=== PATIENT | male | born 1990 | race Caucasian/White ===

== ENCOUNTER 2019-12-27 17:45 | Inpatient (IN) | payer OTHER ==
[2019-12-27 18:20] VITALS: BMI 27.6
[2019-12-27] MEDS ORDERED: MAGNESIUM CITRATE 300 ML BOTTLE PO PRN (18:35)
[2019-12-27] MEDS ORDERED: IBUPROFEN 400 MG TABLET (FP) PO PRN (18:35)
[2019-12-27] MEDS ORDERED: P-EPHED 60MG/TRIPROLIDI 2.5MG TABLET PO PRN (18:35)
[2019-12-27] MEDS ORDERED: guaiFENesin 200 MG/10 ML 10 ML UNIT-DOSE CUPS PO PRN (18:35)
[2019-12-27] MEDS ORDERED: MAG HYDROX/AL HYDROX/SIMETH 30 ML UNIT-DOSE CUP PO PRN (18:35)
[2019-12-27] MEDS ORDERED: LOPERAMIDE HCL 2 MG CAPSULE PO PRN (18:35)
[2019-12-27] MEDS ORDERED: ACETAMINOPHEN 325 MG TABLET (FP) PO PRN (18:35)
[2019-12-27] MEDS ORDERED: MAGNESIUM HYDROX 2400MG/30ML ORAL SUSPENSION 30 ML CUP PO PRN (18:35)
[2019-12-27] MEDS ORDERED: TUBERCULIN PPD 5 TU/0.1ML VIAL ID ONE (19:18)
[2019-12-27] MEDS: MELATONIN 5 MG TABLETS PO SCH (21:32)
[2019-12-27] MEDS: THIAMINE HCL 100 MG TABLET (FP) PO SCH (21:32)
[2019-12-27] MEDS: hydrOXYzine PAMOATE 25 MG CAPSULE (FP) PO PRN (21:32)
[2019-12-28] MEDS: PRENATAL VITAMINS W/ FOLIC ACID TABLET (FP) PO SCH (10:12)
[2019-12-28] MEDS: SERTRALINE HCL 50 MG TABLET (FP) PO SCH (10:59)
[2019-12-28] MEDS: PATIENT'S OWN MEDICATION (NON-FORMULARY) (Dolutegravir Sodium [Tivicay] 50 MG) PO SCH ×2 (11:00→17:09)
[2019-12-28] MEDS: PATIENT'S OWN MEDICATION (NON-FORMULARY) (Emtricitabine/Tenofovir (Tdf) [Truvada 200 Mg-30 PO SCH ×2 (11:00→17:09)
[2019-12-28] MEDS: hydrOXYzine PAMOATE 25 MG CAPSULE (FP) PO PRN (21:39)
[2019-12-28] MEDS: THIAMINE HCL 100 MG TABLET (FP) PO SCH (21:39)
[2019-12-28] MEDS: MELATONIN 5 MG TABLETS PO SCH (21:39)
[2019-12-28] MEDS: traZODone HCL 50 MG TABLET (FP) PO SCH (21:40)
[2019-12-29] MEDS: PATIENT'S OWN MEDICATION (NON-FORMULARY) (Emtricitabine/Tenofovir (Tdf) [Truvada 200 Mg-30 PO SCH (09:57)
[2019-12-29] MEDS: PATIENT'S OWN MEDICATION (NON-FORMULARY) (Dolutegravir Sodium [Tivicay] 50 MG) PO SCH (09:58)
[2019-12-29] MEDS: PRENATAL VITAMINS W/ FOLIC ACID TABLET (FP) PO SCH (09:58)
[2019-12-29] MEDS: SERTRALINE HCL 50 MG TABLET (FP) PO SCH (09:58)
[2019-12-29] MEDS: hydrOXYzine PAMOATE 25 MG CAPSULE (FP) PO PRN (21:30)
[2019-12-29] MEDS: THIAMINE HCL 100 MG TABLET (FP) PO SCH (21:30)
[2019-12-29] MEDS: traZODone HCL 50 MG TABLET (FP) PO SCH (21:30)
[2019-12-29] MEDS: MELATONIN 5 MG TABLETS PO SCH (21:30)
[2019-12-29] MEDS: NICOTINE POLACRILEX 2 MG GUM BUC PRN (21:31)
[2019-12-30] MEDS: SERTRALINE HCL 50 MG TABLET (FP) PO SCH (09:55)
[2019-12-30] MEDS: PRENATAL VITAMINS W/ FOLIC ACID TABLET (FP) PO SCH (09:55)
[2019-12-30] MEDS: PATIENT'S OWN MEDICATION (NON-FORMULARY) (Dolutegravir Sodium [Tivicay] 50 MG) PO SCH (09:55)
[2019-12-30] MEDS: PATIENT'S OWN MEDICATION (NON-FORMULARY) (Emtricitabine/Tenofovir (Tdf) [Truvada 200 Mg-30 PO SCH (09:55)
[2019-12-30 10:53] LABS: URINE APPEARANCE CLEAR; URINE BILIRUBIN NEGATIVE (NEGATIVE); URINE COLOR YELLOW; URINE GLUCOSE (UA) NEGATIVE (NEGATIVE); URINE KETONE NEGATIVE (NEGATIVE); URINE LEUK ESTERASE NEGATIVE (NEGATIVE); URINE NITRITE NEGATIVE (NEGATIVE); URINE PROTEIN NEGATIVE (NEGATIVE); URINE UROBILINOGEN 0.2 mg/dL (0.2-1.0)
[2019-12-30] MEDS: MELATONIN 5 MG TABLETS PO SCH (21:56)
[2019-12-30] MEDS: traZODone HCL 50 MG TABLET (FP) PO SCH (21:56)
[2019-12-30] MEDS: THIAMINE HCL 100 MG TABLET (FP) PO SCH (21:56)
[2019-12-30] MEDS: hydrOXYzine PAMOATE 25 MG CAPSULE (FP) PO PRN (21:58)
[2019-12-31] MEDS ORDERED: PENICILLIN G BENZATHINE 2,400,000 UNIT/4 ML PFS IM ONE (09:50)
[2019-12-31] MEDS: PRENATAL VITAMINS W/ FOLIC ACID TABLET (FP) PO SCH (10:06)
[2019-12-31] MEDS: PATIENT'S OWN MEDICATION (NON-FORMULARY) (Emtricitabine/Tenofovir (Tdf) [Truvada 200 Mg-30 PO SCH (10:06)
[2019-12-31] MEDS: PATIENT'S OWN MEDICATION (NON-FORMULARY) (Dolutegravir Sodium [Tivicay] 50 MG) PO SCH (10:06)
[2019-12-31] MEDS: SERTRALINE HCL 50 MG TABLET (FP) PO SCH (10:06)
[2019-12-31] MEDS: NICOTINE POLACRILEX 2 MG GUM BUC PRN (10:07)
[2019-12-31] MEDS: MELATONIN 5 MG TABLETS PO SCH (21:34)
[2019-12-31] MEDS: traZODone HCL 50 MG TABLET (FP) PO SCH (21:34)
[2019-12-31] MEDS: THIAMINE HCL 100 MG TABLET (FP) PO SCH (21:34)
[2020-01-01] MEDS: PRENATAL VITAMINS W/ FOLIC ACID TABLET (FP) PO SCH (10:03)
[2020-01-01] MEDS: PATIENT'S OWN MEDICATION (NON-FORMULARY) (Emtricitabine/Tenofovir (Tdf) [Truvada 200 Mg-30 PO SCH (10:03)
[2020-01-01] MEDS: SERTRALINE HCL 50 MG TABLET (FP) PO SCH (10:03)
[2020-01-01] MEDS: PATIENT'S OWN MEDICATION (NON-FORMULARY) (Dolutegravir Sodium [Tivicay] 50 MG) PO SCH (10:04)
[2020-01-01] MEDS: THIAMINE HCL 100 MG TABLET (FP) PO SCH (21:30)
[2020-01-01] MEDS: MELATONIN 5 MG TABLETS PO SCH (21:30)
[2020-01-01] MEDS: hydrOXYzine PAMOATE 25 MG CAPSULE (FP) PO PRN (21:30)
[2020-01-01] MEDS: traZODone HCL 50 MG TABLET (FP) PO SCH (21:30)
[2020-01-02] MEDS: PATIENT'S OWN MEDICATION (NON-FORMULARY) (Dolutegravir Sodium [Tivicay] 50 MG) PO SCH (09:44)
[2020-01-02] MEDS: PATIENT'S OWN MEDICATION (NON-FORMULARY) (Emtricitabine/Tenofovir (Tdf) [Truvada 200 Mg-30 PO SCH (09:44)
[2020-01-02] MEDS: PRENATAL VITAMINS W/ FOLIC ACID TABLET (FP) PO SCH (09:44)
[2020-01-02] MEDS: SERTRALINE HCL 50 MG TABLET (FP) PO SCH (09:44)
[2020-01-02] MEDS: NICOTINE POLACRILEX 2 MG GUM BUC PRN (09:46)
[2020-01-02] MEDS: MELATONIN 5 MG TABLETS PO SCH (22:15)
[2020-01-02] MEDS: traZODone HCL 50 MG TABLET (FP) PO SCH (22:15)
[2020-01-02] MEDS: THIAMINE HCL 100 MG TABLET (FP) PO SCH (22:15)
[2020-01-03] MEDS: PRENATAL VITAMINS W/ FOLIC ACID TABLET (FP) PO SCH (09:54)
[2020-01-03] MEDS: PATIENT'S OWN MEDICATION (NON-FORMULARY) (Dolutegravir Sodium [Tivicay] 50 MG) PO SCH (09:54)
[2020-01-03] MEDS: PATIENT'S OWN MEDICATION (NON-FORMULARY) (Emtricitabine/Tenofovir (Tdf) [Truvada 200 Mg-30 PO SCH (09:55)
[2020-01-03] MEDS: SERTRALINE HCL 50 MG TABLET (FP) PO SCH (09:55)
[2020-01-03] MEDS: hydrOXYzine PAMOATE 25 MG CAPSULE (FP) PO PRN (21:21)
[2020-01-03] MEDS: THIAMINE HCL 100 MG TABLET (FP) PO SCH (21:21)
[2020-01-03] MEDS: traZODone HCL 50 MG TABLET (FP) PO SCH (21:21)
[2020-01-03] MEDS: MELATONIN 5 MG TABLETS PO SCH (21:21)
[2020-01-04] MEDS: PRENATAL VITAMINS W/ FOLIC ACID TABLET (FP) PO SCH (09:59)
[2020-01-04] MEDS: SERTRALINE HCL 50 MG TABLET (FP) PO SCH (09:59)
[2020-01-04] MEDS: PATIENT'S OWN MEDICATION (NON-FORMULARY) (Dolutegravir Sodium [Tivicay] 50 MG) PO SCH (09:59)
[2020-01-04] MEDS: PATIENT'S OWN MEDICATION (NON-FORMULARY) (Emtricitabine/Tenofovir (Tdf) [Truvada 200 Mg-30 PO SCH (09:59)
[2020-01-04] MEDS: MELATONIN 5 MG TABLETS PO SCH (21:58)
[2020-01-04] MEDS: hydrOXYzine PAMOATE 50 MG CAPSULE (FP) PO PRN (21:58)
[2020-01-04] MEDS: traZODone HCL 50 MG TABLET (FP) PO SCH (21:58)
[2020-01-04] MEDS: THIAMINE HCL 100 MG TABLET (FP) PO SCH (21:59)
[2020-01-05] MEDS: PRENATAL VITAMINS W/ FOLIC ACID TABLET (FP) PO SCH (09:52)
[2020-01-05] MEDS: PATIENT'S OWN MEDICATION (NON-FORMULARY) (Emtricitabine/Tenofovir (Tdf) [Truvada 200 Mg-30 PO SCH (09:53)
[2020-01-05] MEDS: SERTRALINE HCL 50 MG TABLET (FP) PO SCH (09:53)
[2020-01-05] MEDS: PATIENT'S OWN MEDICATION (NON-FORMULARY) (Dolutegravir Sodium [Tivicay] 50 MG) PO SCH (09:53)
[2020-01-05] MEDS: hydrOXYzine PAMOATE 50 MG CAPSULE (FP) PO PRN (21:02)
[2020-01-05] MEDS: MELATONIN 5 MG TABLETS PO SCH (21:02)
[2020-01-05] MEDS: traZODone HCL 50 MG TABLET (FP) PO SCH (21:02)
[2020-01-05] MEDS: THIAMINE HCL 100 MG TABLET (FP) PO SCH (21:02)
[2020-01-06] MEDS: PATIENT'S OWN MEDICATION (NON-FORMULARY) (Emtricitabine/Tenofovir (Tdf) [Truvada 200 Mg-30 PO SCH (09:32)
[2020-01-06] MEDS: PATIENT'S OWN MEDICATION (NON-FORMULARY) (Dolutegravir Sodium [Tivicay] 50 MG) PO SCH (09:32)
[2020-01-06] MEDS: PRENATAL VITAMINS W/ FOLIC ACID TABLET (FP) PO SCH (09:33)
[2020-01-06] MEDS: SERTRALINE HCL 50 MG TABLET (FP) PO SCH (09:33)
[2020-01-06] MEDS: MELATONIN 5 MG TABLETS PO SCH (21:20)
[2020-01-06] MEDS: hydrOXYzine PAMOATE 50 MG CAPSULE (FP) PO PRN (21:20)
[2020-01-06] MEDS: traZODone HCL 50 MG TABLET (FP) PO SCH (21:20)
[2020-01-06] MEDS: THIAMINE HCL 100 MG TABLET (FP) PO SCH (21:20)
[2020-01-07] MEDS: SERTRALINE HCL 50 MG TABLET (FP) PO SCH (09:44)
[2020-01-07] MEDS: PRENATAL VITAMINS W/ FOLIC ACID TABLET (FP) PO SCH (09:44)
[2020-01-07] MEDS: PATIENT'S OWN MEDICATION (NON-FORMULARY) (Emtricitabine/Tenofovir (Tdf) [Truvada 200 Mg-30 PO SCH (09:45)
[2020-01-07] MEDS: PATIENT'S OWN MEDICATION (NON-FORMULARY) (Dolutegravir Sodium [Tivicay] 50 MG) PO SCH (09:45)
[2020-01-07] MEDS ORDERED: PENICILLIN G BENZATHINE 2,400,000 UNIT/4 ML PFS IM ONE (10:43)
[2020-01-07] MEDS: THIAMINE HCL 100 MG TABLET (FP) PO SCH (21:26)
[2020-01-07] MEDS: hydrOXYzine PAMOATE 50 MG CAPSULE (FP) PO PRN (21:26)
[2020-01-07] MEDS: traZODone HCL 50 MG TABLET (FP) PO SCH (21:26)
[2020-01-07] MEDS: MELATONIN 5 MG TABLETS PO SCH (21:26)
[2020-01-08] MEDS: PRENATAL VITAMINS W/ FOLIC ACID TABLET (FP) PO SCH (09:27)
[2020-01-08] MEDS: PATIENT'S OWN MEDICATION (NON-FORMULARY) (Emtricitabine/Tenofovir (Tdf) [Truvada 200 Mg-30 PO SCH (09:27)
[2020-01-08] MEDS: SERTRALINE HCL 50 MG TABLET (FP) PO SCH (09:28)
[2020-01-08] MEDS: PATIENT'S OWN MEDICATION (NON-FORMULARY) (Dolutegravir Sodium [Tivicay] 50 MG) PO SCH (09:28)
[2020-01-08] MEDS: MELATONIN 5 MG TABLETS PO SCH (21:23)
[2020-01-08] MEDS: THIAMINE HCL 100 MG TABLET (FP) PO SCH (21:23)
[2020-01-08] MEDS: traZODone HCL 50 MG TABLET (FP) PO SCH (21:23)
[2020-01-08] MEDS: hydrOXYzine PAMOATE 50 MG CAPSULE (FP) PO PRN (21:23)
[2020-01-09] MEDS: PRENATAL VITAMINS W/ FOLIC ACID TABLET (FP) PO SCH (09:43)
[2020-01-09] MEDS: PATIENT'S OWN MEDICATION (NON-FORMULARY) (Emtricitabine/Tenofovir (Tdf) [Truvada 200 Mg-30 PO SCH (09:44)
[2020-01-09] MEDS: SERTRALINE HCL 50 MG TABLET (FP) PO SCH (09:44)
[2020-01-09] MEDS: PATIENT'S OWN MEDICATION (NON-FORMULARY) (Dolutegravir Sodium [Tivicay] 50 MG) PO SCH (09:44)
[2020-01-09] MEDS: MELATONIN 5 MG TABLETS PO SCH (21:35)
[2020-01-09] MEDS: traZODone HCL 50 MG TABLET (FP) PO SCH (21:36)
[2020-01-09] MEDS: THIAMINE HCL 100 MG TABLET (FP) PO SCH (21:36)
[2020-01-10 06:54] VITALS: BP 135/90; PULSE 73; TEMP 97.7
[2020-01-10] MEDS: PATIENT'S OWN MEDICATION (NON-FORMULARY) (Emtricitabine/Tenofovir (Tdf) [Truvada 200 Mg-30 PO SCH (09:15)
[2020-01-10] MEDS: SERTRALINE HCL 50 MG TABLET (FP) PO SCH (09:16)
[2020-01-10] MEDS: PATIENT'S OWN MEDICATION (NON-FORMULARY) (Dolutegravir Sodium [Tivicay] 50 MG) PO SCH (09:16)
[2020-01-10] MEDS: PRENATAL VITAMINS W/ FOLIC ACID TABLET (FP) PO SCH (09:16)
[2020-01-14] MEDS ORDERED: PENICILLIN G BENZATHINE 2,400,000 UNIT/4 ML PFS IM ONE (13:30)
== END 2020-01-10 09:25 | disposition home or self-care (01) | DRG 772 ==
LOC: YASAS 17:45 → Y5N 18:29
PROVIDERS: ADMIT Allergy & Immunology; ATTEND Allergy & Immunology
PROC: HZ42ZZZ Group Counseling for Substance Abuse Treatment, Cognitive-Behavioral (ICD-10-PCS; principal; 2019-12-27)
DX: F15.20 Other stimulant dependence, uncomplicated (principal); F13.10 Sedative, hypnotic or anxiolytic abuse, uncomplicated; F19.282 Other psychoactive substance dependence with psychoactive substance-induced sleep disorder; Z72.0 Tobacco use; F19.24 Other psychoactive substance dependence with psychoactive substance-induced mood disorder; F32.9 Major depressive disorder, single episode, unspecified; Z21 Asymptomatic human immunodeficiency virus [HIV] infection status; B18.2 Chronic viral hepatitis C; Z86.19 Personal history of other infectious and parasitic diseases
CPT/HCPCS: 36415; 81003; 85660; 86593; 86780